=== PATIENT | female | born 1985 | race Caucasian/White ===

== ENCOUNTER → 2020-10-03 | Outpatient (REF) | payer BC ==
[2020-10-03 12:38] LABS: BASO % 0.3 % (0.0-1.0); EOS # 0.2 10^3/uL (0.0-0.5); HEMATOCRIT 28.7 % (36.0-47.0); HEMATOCRIT 29.1 % (36.0-47.0); HEMOGLOBIN 8.1 g/dl (12.0-15.5); LYMPH # 1.1 10^3/uL (1.5-5.0); LYMPH % 19.3 % (24.0-44.0); MEAN CORPUSCULAR HEMOGLOBIN 19.2 pg (27.0-33.0); MEAN CORPUSCULAR HGB CONC 27.8 g/dl (32.0-36.5); MONO # 0.5 10^3/uL (0.0-0.8); MONO % 8.5 % (2.0-8.0); NEUTROPHILS % 68.6 % (36.0-66.0); PLATELET COUNT, AUTOMATED 336 10^3/uL (150-450); RED BLOOD COUNT 4.22 10^6/uL (4.00-5.40); WHITE BLOOD COUNT 5.8 10^3/uL (4.0-10.0)
[2020-10-03 13:24] LABS: ALBUMIN 3.9 GM/DL (3.2-5.2); ALT/SGPT 31 U/L (12-78); BILIRUBIN,TOTAL 0.7 MG/DL (0.2-1.0); BLOOD UREA NITROGEN 9 MG/DL (7-18); CALCIUM LEVEL 9.2 MG/DL (8.5-10.1); CARBON DIOXIDE LEVEL 26 MEQ/L (21-32); CHLORIDE LEVEL 106 MEQ/L (98-107); CREATININE FOR GFR 0.73 MG/DL (0.55-1.30); FOLATE 15.9 NG/ML; FREE T4 0.35 NG/DL (0.76-1.46); GLOMERULAR FILTRATION RATE > 60.0 (>60); GLUCOSE, FASTING 72 MG/DL (70-100); IRON (FE) 14 UG/DL (50-170); MAGNESIUM LEVEL 2.1 MG/DL (1.8-2.4); PERCENT SATURATION 2.6 % (13.2-45.0); POTASSIUM SERUM 4.1 MEQ/L (3.5-5.1); SODIUM LEVEL 140 MEQ/L (136-145); TOTAL 25(OH) VITAMIN D 12.8 NG/ML (30.0-100.0); TOTAL IRON BINDING CAPACITY 544 UG/DL (250-450); TOTAL PROTEIN 7.2 GM/DL (6.4-8.2); VITAMIN B12 LEVEL 252 PG/ML
[2020-10-03 13:25] LABS: FERRITIN 7 NG/ML (8-252)
== END ==
LOC: M SFHCADAM 09:06
PROVIDERS: ATTEND Physician Assistant Medical
DX: E03.9 Hypothyroidism, unspecified (principal); M79.7 Fibromyalgia; Z98.84 Bariatric surgery status; R19.7 Diarrhea, unspecified

== ENCOUNTER → 2020-10-14 | Outpatient (REF) | payer BC | LOC: M SFHCADAM 11:38 | PROVIDERS: ATTEND Physician Assistant Medical | DX: D50.8 Other iron deficiency anemias (principal); R19.5 Other fecal abnormalities ==

== ENCOUNTER → 2020-10-15 | Outpatient (REF) | payer BC ==
[~2020-10-15] MED LIST: CYAN100050 PO; D 50CAP2 PO; ESTR0.5T3 PO; ESTRADIOL; FERR325T3 PO; LEVO75TA4 PO; VALA500T5 PO
[2020-10-15 13:59] LABS: HEMATOCRIT 26.7 % (36.0-47.0); HEMOGLOBIN 7.4 g/dl (12.0-15.5)
== END ==
LOC: M SFHCADAM 08:46
PROVIDERS: ATTEND Physician Assistant Medical
DX: D50.8 Other iron deficiency anemias (principal); R19.5 Other fecal abnormalities

== ENCOUNTER 2020-10-16 11:47 | Inpatient (IN) | payer BC ==
[2020-10-16] VITALS (11 sets, daily range): BP systolic 99–124; BP diastolic 54–80
[~2020-10-16] VITALS: Ht 154.9 cm; Wt 56.6 kg
[2020-10-16] MEDS ORDERED: LEVO75TA4 PO (11:56)
[2020-10-16] MEDS ORDERED: CYAN100050 PO (11:56)
[2020-10-16] MEDS ORDERED: VALA500T5 PO (11:56)
[2020-10-16] MEDS ORDERED: D 50CAP2 PO (11:56)
[2020-10-16] MEDS ORDERED: ESTRADIOL (11:56)
[2020-10-16] MEDS ORDERED: FERR325T3 PO (11:56)
[2020-10-16] MEDS ORDERED: NS 1,000 ML IV SCH (12:30)
[2020-10-16] MEDS ORDERED: PANTOPRAZOLE 40MG VIAL (C9113 PER 1) IV ONE (12:30)
--- NOTE | 2020-10-16 12:56 | REP ---
INDICATION: Diffuse abdominal pain with low hemoglobin and hematocrit COMPARISON: None. TECHNIQUE: Limited noncontrast enhanced standard helical technique without the administration of intravenous or oral bowel preparatory contrast FINDINGS: The lung bases are clear. Limited evaluation of the solid intra-abdominal organs show no gross abnormalities. Limited evaluation of the pancreas, adrenal glands, and kidneys show no gross abnormalities. Limited evaluation of the abdominal aorta and para-aortic regions show no gross abnormalities. Surgical clips are seen in the left upper quadrant from previous bariatric surgery. Limited evaluation of the bowel loops and the mesenteries show no gross abnormalities. There is no free fluid or free air. The imaged osseous structures are within normal limits. IMPRESSION: Limited noncontrast enhanced CT examination of the abdomen and pelvis shows no evidence of acute disease. <Electronically signed by Wilmar Gallardo > 10/16/20 [id number]
[2020-10-16 13:08] LABS: BASO % 0.3 % (0.0-1.0); EOS % 0.5 % (0.0-3.0); HEMATOCRIT 27.2 % (36.0-47.0); HEMOGLOBIN 7.5 g/dl (12.0-15.5); LYMPH # 1.4 10^3/uL (1.5-5.0); LYMPH % 34.6 % (24.0-44.0); MEAN CORPUSCULAR HEMOGLOBIN 19.2 pg (27.0-33.0); MEAN CORPUSCULAR HGB CONC 27.6 g/dl (32.0-36.5); MEAN CORPUSCULAR VOLUME 69.7 fl (80.0-96.0); MONO # 0.3 10^3/uL (0.0-0.8); MONO % 6.9 % (2.0-8.0); NEUTROPHILS # 2.3 10^3/uL (1.5-8.5); NEUTROPHILS % 57.4 % (36.0-66.0); PLATELET COUNT, AUTOMATED 301 10^3/uL (150-450); WHITE BLOOD COUNT 3.9 10^3/uL (4.0-10.0)
[2020-10-16] MEDS ORDERED: ESTR0.5T3 PO (13:09)
[2020-10-16 13:26] LABS: INR 0.96
[2020-10-16 13:35] LABS: RSV AMPLIFICATION NEGATIVE (NEGATIVE)
[2020-10-16 13:40] LABS: ALBUMIN 3.5 GM/DL (3.2-5.2); ALT/SGPT 23 U/L (12-78); BILIRUBIN,DIRECT < 0.1 MG/DL (0.0-0.2); BILIRUBIN,TOTAL 0.5 MG/DL (0.2-1.0); BLOOD UREA NITROGEN 9 MG/DL (7-18); CALCIUM LEVEL 8.4 MG/DL (8.5-10.1); CARBON DIOXIDE LEVEL 24 MEQ/L (21-32); CHLORIDE LEVEL 110 MEQ/L (98-107); CK-MB VALUE MASS 2.7 NG/ML (<3.6); CPK CREATINE PHOSPHOKINASE 118 U/L (26-192); CREATININE FOR GFR 0.62 MG/DL (0.55-1.30); GLOMERULAR FILTRATION RATE > 60.0 (>60); GLUCOSE, FASTING 71 MG/DL (70-100); LIPASE 157 U/L (73-393); MB/CK RELATIVE INDEX 2.29 (< OR =4); POTASSIUM SERUM 4.2 MEQ/L (3.5-5.1); SODIUM LEVEL 143 MEQ/L (136-145); TOTAL PROTEIN 6.7 GM/DL (6.4-8.2); TROPONIN I < 0.02 NG/ML (< 0.10)
[2020-10-16 14:33] LABS: FERRITIN 10 NG/ML (8-252); IRON (FE) 17 UG/DL (50-170); PERCENT SATURATION 3.4 % (13.2-45.0); TOTAL IRON BINDING CAPACITY 502 UG/DL (250-450)
[2020-10-16] MEDS ORDERED: DEXTROSE 50% 50 ML SYRINGE IV PRN (14:35)
[2020-10-16] MEDS ORDERED: GI COCKTAIL 50ML BTL(HYOSCYAMINE/MAALOX/LIDOCAINE VISCOUS)(1:3:1) PO PRN (14:35)
[2020-10-16] MEDS ORDERED: GLUCAGON INJ 1MG VIAL SC PRN (14:35)
[2020-10-16] MEDS ORDERED: ONDANSETRON 4MG/2ML VIAL IV PRN (14:35)
[2020-10-16] MEDS ORDERED: GLUCOSE 4GM CHEW TABLET PO PRN (14:35)
--- NOTE | 2020-10-16 14:46 | HPEPDOC ---
[facility] Medical History & Physical Date of Admission Oct 16, 2020 Date of Service: Oct 16, 2020 History and Physical CHIEF COMPLAINT: Black stools for 2 weeks HISTORY OF PRESENT ILLNESS: 35-year-old female with history of gastric bypass surgery in 2017 with gastric sleeve, thyroid CA status post thyroidectomy, hysterectomy due to polycystic ovarian syndrome, hypothyroidism, status post thyroidectomy, fibromyalgia, dish washer camelia anemia avoids nonsteroidal anti-inflammatories since her gastric bypass surgery presents to the emergency room after routine blood tests ordered by her primary care physician, showed a hemoglobin of 7.5. Patient has noted increasing melanotic stools, black and tarry for the past 2 weeks about 3 times a day, worse when she eats something with diffuse abdominal pain without fever, chills, chest pain, pressure, tightness, nausea or vomiting with about a 15-20 pound weight loss in the past year, with dizziness, diaphoresis at times but no palpitations, shortness of breath or near syncope. She denies hematemesis, coffee-ground emesis or history of peptic ulcer disease in the past or heartburn . Gastroesophageal reflux and denied taking any jzfc-rkv-hzfjqub medications, aside from acetaminophen for her abdominal pain at home without relief. Patient had no prior episodes of black stools in the past and has not had blood transfusion. She complains of occasional cold sores and has joint pains, bilateral small joints of the hands, hips, back, knees, ankles for her fibromyalgia, but denies taking Naprosyn, Advil, Aleve as outpatient. In the emergency room. Patient was not orthostatic, CT abdomen and pelvis was negative for acute colitis but limited since it had no oral contrast. [facility] was asked to admit the patient for symptomatic anemia due to acute blood loss from suspected upper GI bleed, most likely due to history of gastric bypass surgery and possible anastomotic ulcer. PAST MEDICAL/ SURGICAL HISTORY: history of gastric bypass surgery in 2017 with gastric sleeve, thyroid CA status post thyroidectomy, hysterectomy due to polycystic ovarian syndrome, hypothyroidism, status post thyroidectomy, fibromyalgia, chronic anemia , lumpectomy of the breast, benign, cholecystectomy, SOCIAL HISTORY: Full code. Healthcare proxy, rohit SANDOVALSREE [phone] social alcohol use 1-2 beers/twice a month . denies cig or drug use. [facility] [employer] [employer]. FAMILY HISTORY: Father: Alive, age 56. Stage III colon cancer diagnosed at age 55 Mother: Mother in her 50s, 15 months ago, history of COPD, lupus, heart problems, anemia, had a scope and of infection ALLERGIES: Please see below. REVIEW OF SYSTEMS: 10 point review of systems negative aside from positive findings in HPI HOME MEDICATIONS: Please see below. PHYSICAL EXAMINATION: VITAL SIGNS: See below GENERAL APPEARANCE: Pale, no respiratory distress icterus, jaundice. No use of r espiratory accessory muscles. Speaks in full sentences. Awake, alert, oriented 3. HEENT: No JVD. No cervical lymphadenopathy. Moist mucous membranes. Pupils equally round, reactive to light accommodation. Extra muscles are intact. Neck supple, full range of motion, no carotid bruit. No stridor CARDIOVASCULAR: S1, S2, sinus rhythm, no murmurs, rubs or gallops LUNGS: Air entry is equal bilaterally. No adventitious breath sounds clear to auscultation. No kyphosis or scoliosis ABDOMEN: Positive bowel sounds, soft, nondistended. Epigastric tenderness without rebound or guarding. No hepatosplenomegaly EXTREMITIES: No cyanosis, clubbing or pitting edema LABORATORY DATA: See below. IMAGING: See chart MICROBIOLOGY: Please see below. ASSESSMENT: 35-year-old female with history of gastric bypass surgery in 2017 with gastric sleeve, thyroid CA status post thyroidectomy, hysterectomy due to polycystic ovarian syndrome, hypothyroidism, status post thyroidectomy, fibromyalgia, chronic anemia avoids nonsteroidal anti-inflammatories since her gastric bypass surgery presents to the emergency room after routine blood tests ordered by her primary care physician, showed a hemoglobin of 7.5. Patient has noted increasing melanotic stools, black and tarry for the past 2 weeks about 3 times a day, worse when she eats something with diffuse abdominal pain without fever, chills, chest pain, pressure, tightness, nausea or vomiting with about a 15-20 pound weight loss in the past year, with dizziness, diaphoresis at times but no palpitations, shortness of breath or near syncope. She denies hematemesis, coffee-ground emesis or history of peptic ulcer disease in the past or heartburn. Gastroesophageal reflux and denied taking any keoa-whl-leqqvha medications, aside from acetaminophen for her abdominal pain at home without relief. Patient had no prior episodes of black stools in the past and has not had blood transfusion. She complains of occasional cold sores and has joint pains, bilateral small joints of the hands, hips, back, knees, ankles for her fibromyalgia, but denies taking Naprosyn, Advil, Aleve as outpatient. In the emergency room. Patient was not orthostatic, CT abdomen and pelvis was negative for acute colitis but limited since it had no oral contrast. Hospitalist was asked to admit the patient for symptomatic anemia due to acute blood loss from suspected upper GI bleed, most likely due to history of gastric bypass surgery and possible anastomotic ulcer. Symptomatic anemia Suspected upper GI bleed Acute blood loss anemia History of gastric bypass surgery with gastric sleeve thyroid CA status post thyroidectomy hysterectomy due to polycystic ovarian syndrome hypothyroidism, status post thyroidectomy fibromyalgia Plan: Patient will be admitted as an inpatient. Nothing by mouth, IV fluids, hypoglycemic protocol. Transfuse 2 units of RBC transfusion, general surgeon, Dr. Wing consulted for EGD. Protonix 40 IV twice a day, Carafate 1 g every 6 hourly. Compression stockings for DVT prophylaxis. Change medications to IV if needed Vital Signs Vital Signs Date Time Temp Pulse Resp B/P (MAP) Pulse Ox O2 Delivery O2 Flow Rate FiO2 10/16/20 13:45 68 18 101/59 (73) 100 Room Air 10/16/20 11:47 97.2 Laboratory Data Labs 24H Laboratory Tests 2 10/16/20 12:41: Immature Granulocyte % (Auto) 0.3, Neutrophils (%) (Auto) 57.4, Lymphocytes (%) (Auto) 34.6, Monocytes (%) (Auto) 6.9, Eosinophils (%) (Auto) 0.5, Basophils (%) (Auto) 0.3, Neutrophils # (Auto) 2.3, Lymphocytes # (Auto) 1.4L, Monocytes # (Auto) 0.3, Eosinophils # (Auto) 0.0, Basophils # (Auto) 0.0, Nucleated Red Blood Cells % (auto) 0.0, Differential Slide Review Report, Peripheral Blood Smear Path Consult PERIPHERAL SMEAR, Prothrombin Time 13.0, Prothromb Time International Ratio 0.96, Anion Gap 9, Glomerular Filtration Rate > 60.0, Calcium Level 8.4L, Iron Level 17L, Total Iron Binding Capacity 502H, Transferrin % Saturation 3.4L, Ferritin 10, Total Bilirubin 0.5, Direct Bilirubin < 0.1, Aspartate Amino Transf (AST/SGOT) 29, Alanine Aminotransferase (ALT/SGPT) 23, Alkaline Phosphatase 51, Total Creatine Kinase 118, Creatine Kinase MB 2.7, Creatine Kinase MB Relative Index 2.29, Troponin I < 0.02, Total Protein 6.7, Albumin 3.5, Albumin/Globulin Ratio 1.1L, Lipase 157, Coronavirus (COVID-19)(PCR) NEGATIVE, Influenza Type A (RT-PCR) NEGATIVE, Influenza Type B (RT-PCR) NEGATIVE, Respiratory Syncytial Virus (PCR) NEGATIVE CBC/BMP Laboratory Tests 10/16/20 12:41 Home Medications Scheduled Cholecalciferol (Vitamin D3) (Vitamin D3) 125 Mcg Capsule, 125 MCG PO QHS Cyanocobalamin (Vitamin B-12) (Vitamin B-12) 1,000 Mcg Tablet, 1,000 MCG PO QHS Estradiol (Estrace) 0.5 Mg Tablet, 0.5 MG PO QHS HAS NOT STARTED YET Ferrous Sulfate (Ferrous Sulfate) 325 Mg Tablet.dr, 325 MG PO QHS Levothyroxine Sodium (Levothyroxine Sodium) 75 Mcg Tablet, 75 MCG PO DAILY Valacyclovir HCl (Valacyclovir) 500 Mg Tablet, 500 MG PO QHS Allergies Coded Allergies: No Known Allergies (Unverified , 10/16/20) A-FIB/CHADSVASC A-FIB History Current/History of A-Fib/PAF?: No Current PO Anticoag Therapy: No Age/Risk Factor Scoring CHADSVASC: CHADSVASC Response (Comments) Value Age Risk Factor Age < 65 years old 0 Gender Risk Factor Female 1 Hx of CHF No 0 Hx of HTN No 0 Hx of Stroke/TIA/or VTE No 0 Hx of Diabetes No 0 Hx of Vascular Disease No 0 Total 1 Treatment Treatment ordered: NONE Reason Anticoagulant not given: Current bleeding LOPEZ MCFARLAND MD Oct 16, 2020 14:46
[2020-10-16] MEDS ORDERED: BISACODYL 5 MG TAB PO ONE (18:00)
[2020-10-16] MEDS: SUCRALFATE SUSP 1GM/10ML UD PO SCH (18:19)
[2020-10-16] MEDS: D5W/0.45% SODIUM CHLORIDE 1,000 ML IV SCH ×2 (18:19→21:20)
[2020-10-16] MEDS ORDERED: GOLYTELY SOLN 4000 ML BTL PO ONE (19:00)
[2020-10-16] MEDS: PANTOPRAZOLE 40MG VIAL (C9113 PER 1) IV SCH (21:04)
[2020-10-16] MEDS ORDERED: ACETAMINOPHEN TAB 650MG DOSE (2X325MG) PO PRN (21:35)
[2020-10-16 21:51] LABS: HEMATOCRIT 33.4 % (36.0-47.0)
[2020-10-16 22:19] LABS: HEMOGLOBIN 9.9 g/dl (12.0-15.5)
[2020-10-17] VITALS (9 sets, daily range): BP systolic 98–123; BP diastolic 54–71
[2020-10-17] MEDS: D5W/0.45% SODIUM CHLORIDE 1,000 ML IV SCH ×3 (01:59→12:38)
[2020-10-17] MEDS: SUCRALFATE SUSP 1GM/10ML UD PO SCH ×5 (01:59→23:04)
[2020-10-17 05:51] LABS: HEMATOCRIT 32.5 % (36.0-47.0); HEMOGLOBIN 9.5 g/dl (12.0-15.5); MEAN CORPUSCULAR HEMOGLOBIN 21.6 pg (27.0-33.0); MEAN CORPUSCULAR HGB CONC 29.2 g/dl (32.0-36.5); MEAN CORPUSCULAR VOLUME 73.9 fl (80.0-96.0); PLATELET COUNT, AUTOMATED 270 10^3/uL (150-450); WHITE BLOOD COUNT 4.4 10^3/uL (4.0-10.0)
[2020-10-17 06:16] LABS: BLOOD UREA NITROGEN 8 MG/DL (7-18); CALCIUM LEVEL 8.5 MG/DL (8.5-10.1); CARBON DIOXIDE LEVEL 26 MEQ/L (21-32); CHLORIDE LEVEL 110 MEQ/L (98-107); GLOMERULAR FILTRATION RATE > 60.0 (>60); GLUCOSE, FASTING 82 MG/DL (70-100); POTASSIUM SERUM 3.7 MEQ/L (3.5-5.1); SODIUM LEVEL 143 MEQ/L (136-145)
[2020-10-17] MEDS: PANTOPRAZOLE 40MG VIAL (C9113 PER 1) IV SCH (08:04)
--- NOTE | 2020-10-17 09:14 | CR.PDOC ---
General Surgery Consultation Date of Consultation 10/17/20 History and Physical CONSULT REPORT FOR: hospitalist service REASON FOR CONSULTATION: severe anemia, melena HISTORY OF PRESENT ILLNESS: Patient is a 35-year-old female admitted to the hospitalist service for severe anemia associated with passage of black loose stools for the past 2 weeks. Patient reports a prior history of some sort of gastric resection for a benign cyst in the stomach back in 2016. She reports that the pathology is benign. She denies any prior history of peptic ulcer disease. She does have a history of irritable bowel syndrome, pulse cystic ovarian syndrome and has abdominal cramps. There. It looks like she was from [place] some us for care were done there. She recently transferred to our area and established with the [facility]. Initial screening labs done at the end of September shows a hemoglobin of 8.1. She was started on supplementa l iron. Repeat studies that were done 2 days ago shows that this has dropped to 7.4 prompting her to be recalled to the emergency room and subsequent admission yesterday. She reports intermittent epigastric discomfort that she reports as burning. She also reports associated nausea, sometimes retching no vomiting. She also has been having some intermittent loose stools every time she eats though for the past 2 weeks she notes that the collar has been black. She denies any unexplained weight loss. Her father was diagnosed with colon cancer at age 55. She reports prior history of colonoscopy several years ago for complaints of abdominal pain and rectal bleeding with some polyps removed. She has had no prior endoscopies performed. PAST MEDICAL HISTORY: 1. Thyroid cancer status post thyroidectomy. 2. Polycystic ovarian syndrome status post laparoscopic hysterectomy 3. Fibromyalgia 4. Chronic anemia 5. Breast lumpectomy 6. Cholecystectomy PAST SURGICAL HISTORY: INCLUDES: 1. She has some sort of gastric surgery for what she refers to as a cyst in the stomach in 2017. This was performed laparoscopically. She reports that this was for a benign cyst. 2. Laparoscopic cholecystectomy 3. Laparoscopic hysterectomy 4. section 5. Thyroidectomy ALLERGIES: Please see below. FAMILY HISTORY: Reports her father was diagnosed with colon cancer at age 55. HOME MEDICATIONS: Please see below. REVIEW OF SYSTEMS: GENERAL: Patient denies any unexplained weight loss. Denies fevers or chills. HEENT: Denies problems with vision or hearing. NECK: Denies any neck pain CARDIOVASCULAR: Denies chest pain and palpitations. MUSCULOSKELETAL: Reports fibromyalgia. NEUROLOGIC: Denies headaches. PSYCHIATRIC: Denies anxiety and depression. ENDOCRINE: Has had total thyroidectomy. Denies any heat or cold intolerance, on thyroid supplementation. HEMATOLOGY/ONCOLOGY: Denies bleeding or clotting disorder. HEART: Denies any chest pains, palpitations, paroxysmal dyspnea, orthopnea. PULMONARY: Denies chronic cough, dyspnea and wheezing. GASTROINTESTINAL: See HPI. GENITOURINARY: Denies dysuria, frequency, hematuria and nocturia. ENDOCRINE: Denies polydipsia, polyphagia, polyuria, heat or cold intolerance. INFECTIOUS: Denies any recent upper respiratory tract infection, UTI, need for use of antibiotics. NUTRITION: Reports fair appetite secondary to intermittent nausea. PHYSICAL EXAMINATION: VITALS SIGNS: Please see below. GENERAL APPEARANCE: Patient is seen in the emergency room. She looks comfortable as I entered the room. She is laying flat in bed. In no acute distress. SKIN: Warm and dry, no jaundice. HEENT: Normocephalic, mild pale palpebral conjunctiva. Lips and mucosa are mildly dry. NECK: Supple, no thyromegaly. No obvious jugular venous distention. Prior thyroidectomy incision LUNGS: Clear to auscultation bilaterally. No wheezing appreciated. HEART: No chest wall abnormalities. Regular rate and rhythm with no murmurs appreciated. ABDOMEN: Abdomen is nondistended, soft, nontender on palpation. She has several laparoscopic port sites without any signs of herniation. EXTREMITIES: No significant edema ANCILLARIES: . LABORATORY DATA: Please see below. IMAGING STUDIES: CT scan abdomen and pelvis. IMPRESSION AND PLAN: Patient comes in with severe anemia in the setting of a chronic anemia also reports of what looks to be melanotic stools the past 2 weeks. He has had some sort of prior gastric resection. A clarified this with her. This was not the area gastric sleeve for bariatric purposes. This was for a removal of a lump or a cyst. She reports this is a benign cyst related to her polycystic ovarian syndrome. She also has a significant family history for colon cancer. Her father has been diagnosed with a fairly advanced colon cancer at age 55. She has had prior colonoscopy several years ago but has had no prior upper endoscopies. She also denies any previous history of peptic ulcer disease. She has already been started on Protonix IV. I discussed with her the suspicion that she might have been having a gastrointestinal source of her bleeding and thus the need for an upper endoscopy and I would consider a colonoscopy she is able to take a bowel prep. She is willing to take the bowel prep overnight. So we will schedule her for an upper endoscopy and colonoscopy in the morning. Vital Signs Vital Signs Date Time Temp Pulse Resp B/P (MAP) Pulse Ox O2 Delivery O2 Flow Rate FiO2 10/17/20 06:00 98.0 58 18 110/56 (74) 98 Room Air I&Os I&O- Last 24 Hours up to 6 AM 10/17/20 05:59 Intake Total 2930 ml Balance 2930 ml Laboratory Data Labs 24H Laboratory Tests 2 10/16/20 12:41: Immature Granulocyte % (Auto) 0.3, Neutrophils (%) (Auto) 57.4, Lymphocytes (%) (Auto) 34.6, Monocytes (%) (Auto) 6.9, Eosinophils (%) (Auto) 0.5, Basophils (%) (Auto) 0.3, Neutrophils # (Auto) 2.3, Lymphocytes # (Auto) 1.4L, Monocytes # (Auto) 0.3, Eosinophils # (Auto) 0.0, Basophils # (Auto) 0.0, Reticulocyte # (auto) 118.3H, Nucleated Red Blood Cells % (auto) 0.0, Differential Slide Review Report, Peripheral Blood Smear Path Consult PERIPHERAL SMEAR, Percent Reticulocyte Count 3.1H, Reticulocyte Hemoglobin Equivalent 23.9L, Prothrombin Time 13.0, Prothromb Time International Ratio 0.96, Anion Gap 9, Glomerular Filtration Rate > 60.0, Calcium Level 8.4L, Iron Level 17L, Total Iron Binding Capacity 502H, Transferrin % Saturation 3.4L, Ferritin 10, Total Bilirubin 0.5, Direct Bilirubin < 0.1, Aspartate Amino Transf (AST/SGOT) 29, Alanine Aminotransferase (ALT/SGPT) 23, Alkaline Phosphatase 51, Total Creatine Kinase 118, Creatine Kinase MB 2.7, Creatine Kinase MB Relative Index 2.29, Troponin I < 0.02, Total Protein 6.7, Albumin 3.5, Albumin/Globulin Ratio 1.1L, Lipase 157, Coronavirus (COVID-19)(PCR) NEGATIVE, Influenza Type A (RT-PCR) NEGATIVE, Influenza Type B (RT-PCR) NEGATIVE, Respiratory Syncytial Virus (PCR) NEGATIVE 6/11/21 05:24: Nucleated Red Blood Cells % (auto) 0.0, Anion Gap 7L, Glomerular Filtration Rate > 60.0, Calcium Level 8.5 CBC/BMP Laboratory Tests 10/16/20 12:41 10/16/20 21:42 10/17/20 05:24 Microbiology Microbiology 10/16/20 Stool Occult Blood (JOSÉ MIGUEL) - Final, Complete Home Medications Scheduled Cholecalciferol (Vitamin D3) (Vitamin D3) 125 Mcg Capsule, 125 MCG PO QHS, (Reported) Cyanocobalamin (Vitamin B-12) (Vitamin B-12) 1,000 Mcg Tablet, 1,000 MCG PO QHS, (Reported) Estradiol (Estrace) 0.5 Mg Tablet, 0.5 MG PO QHS, (Reported) HAS NOT STARTED YET Ferrous Sulfate (Ferrous Sulfate) 325 Mg Tablet.dr, 325 MG PO QHS, (Reported) Levothyroxine Sodium (Levothyroxine Sodium) 75 Mcg Tablet, 75 MCG PO DAILY, ( Reported) Valacyclovir HCl (Valacyclovir) 500 Mg Tablet, 500 MG PO QHS, (Reported) Allergies Coded Allergies: No Known Allergies (Unverified , 10/16/20) KATE FAUSTIN MD Oct 17, 2020 09:14
[2020-10-17] MEDS ORDERED: fentaNYL 100 MCG/2 ML INJECTION (J3010) As Ordered ONE (10:23)
[2020-10-17] MEDS ORDERED: LIDOCAINE 2% 100MG/5ML SDV (FOR ANES.) As Ordered ONE (10:23)
[2020-10-17] MEDS ORDERED: propofoL 200 MG/20 ML VIAL As Ordered ONE ×2 (10:23→11:39)
--- NOTE | 2020-10-17 11:49 | ROOR ---
Patient Name: Barbara Allen Procedure Date: 10/17/2020 10:32 AM Date of : 1985 Age: 35 Gender: Female Note Status: Finalized Procedure: Upper GI endoscopy Indications: Acute post hemorrhagic anemia, Iron deficiency anemia secondary to chronic blood loss, Iron deficiency anemia Providers: Murtaza Wing MD Referring MD: 2. Inpatient 2. Inpatient Requesting Provider: Medicines: Monitored Anesthesia Care Complications: No immediate complications. Procedure: Pre-Anesthesia Assessment: - Prior to the procedure, a History and Physical was performed, and patient medications and allergies were reviewed. The patient is competent. The risks and benefits of the procedure and the sedation options and risks were discussed with the patient. All questions were answered and informed consent was obtained. Patient identification and proposed procedure were verified by the physician, the nurse and the ornamental iron worker apprentice in the procedure room. Mental Status Examination: alert and oriented. Airway Examination: normal oropharyngeal airway and neck mobility. Respiratory Examination: clear to auscultation. CV Examination: normal. Prophylactic Antibiotics: The patient does not require prophylactic antibiotics. Prior Anticoagulants: The patient has taken no previous anticoagulant or antiplatelet agents. ASA Grade Assessment: II - A patient with mild systemic disease. After reviewing the risks and benefits, the patient was deemed in satisfactory condition to undergo the procedure. The anesthesia plan was to use monitored anesthesia care (MAC). Immediately prior to administration of medications, the patient was re-assessed for adequacy to receive sedatives. The heart rate, respiratory rate, oxygen saturations, blood pressure, adequacy of pulmonary ventilation, and response to care were monitored throughout the procedure. The physical status of the patient was re-assessed after the procedure. The Endoscope was introduced through the mouth, and advanced to the efferent jejunal loop. The upper GI endoscopy was accomplished without difficulty. The patient tolerated the procedure well. Findings: There is no endoscopic evidence of bleeding, areas of erosion or esophagitis in the entire esophagus. A small hiatal hernia was present. The Z-line was regular and was found 38 cm from the incisors. Evidence of a Delmy-en-Y gastrojejunostomy was found. The gastrojejunal anastomosis was characterized by ulceration. This was traversed. The xwpga-bd-uapntds limb was characterized by healthy appearing mucosa and an intact staple line. The xexllaxq-mf-hjizeuy limb was not examined as it could not be reached. This was biopsied with a cold forceps for Helicobacter pylori testing. There is no endoscopic evidence of bleeding, erythema or inflammatory changes suggestive of gastritis, inflammation or varices in the entire examined stomach. One non-bleeding cratered ulcer with no stigmata of bleeding was found at the anastomosis. The lesion was 10 mm in largest dimension. This was biopsied with a cold forceps for Helicobacter pylori testing. Impression: - Small hiatal hernia. - Z-line regular, 38 cm from the incisors. - Delmy-en-Y gastrojejunostomy with gastrojejunal anastomosis characterized by ulceration. Biopsied. Recommendation: - Ad[facility] the [facility]. - Use Protonix (pantoprazole) 40 mg PO BID for 3 months. - Use sucralfate tablets 1 gram PO QID for 6 weeks. Procedure Code(s): --- Professional --- 35883, Esophagogastroduodenoscopy, flexible, transoral; with biopsy, single or multiple Diagnosis Code(s): --- Professional --- K44.9, Diaphragmatic hernia without obstruction or gangrene Z98.0, Intestinal bypass and anastomosis status D62, Acute posthemorrhagic anemia D50.0, Iron deficiency anemia secondary to blood loss (chronic) D50.9, Iron deficiency anemia, unspecified CPT copyright 2019 [employer]. All rights reserved. The codes documented in this report are preliminary and upon contact center director review may be revised to meet current compliance requirements. Murtaza Wing MD Murtaza Wing MD 10/17/2020 11:49:22 AM Electronically signed by Murtaza Wing MD Number of Addenda: 0 Note Initiated On: 10/17/2020 10:32 AM Estimated Blood Loss: Estimated blood loss was minimal.
--- NOTE | 2020-10-17 11:53 | ROOR ---
Patient Name: Barbara Allen Procedure Date: 10/17/2020 10:33 AM Date of : 1985 Age: 35 Gender: Female Note Status: Finalized Procedure: Colonoscopy Indications: Melena, Acute post hemorrhagic anemia, Iron deficiency anemia secondary to chronic blood loss, Iron deficiency anemia Providers: Murtaza Wing MD Referring MD: 2. Inpatient 2. Inpatient Requesting Provider: Medicines: Monitored Anesthesia Care Complications: No immediate complications. Procedure: Pre-Anesthesia Assessment: - Prior to the procedure, a History and Physical was performed, and patient medications and allergies were reviewed. The patient is competent. The risks and benefits of the procedure and the sedation options and risks were discussed with the patient. All questions were answered and informed consent was obtained. Patient identification and proposed procedure were verified by the physician, the nurse and the nuclear operations specialist in the procedure room. Mental Status Examination: alert and oriented. Airway Examination: normal oropharyngeal airway and neck mobility. Respiratory Examination: clear to auscultation. CV Examination: normal. ASA Grade Assessment: II - A patient with mild systemic disease. After reviewing the risks and benefits, the patient was deemed in satisfactory condition to undergo the procedure. The anesthesia plan was to use monitored anesthesia care (MAC). Immediately prior to administration of medications, the patient was re-assessed for adequacy to receive sedatives. The heart rate, respiratory rate, oxygen saturations, blood pressure, adequacy of pulmonary ventilation, and response to care were monitored throughout the procedure. The physical status of the patient was re-assessed after the procedure. The Colonoscope was introduced through the anus and advanced to the cecum, identified by appendiceal orifice and ileocecal valve. The colonoscopy was performed without difficulty. The patient tolerated the procedure well. The quality of the bowel preparation was good. Findings: Hemorrhoids were found on perianal exam. A few small-mouthed diverticula were found in the sigmoid colon and descending colon. There is no endoscopic evidence of bleeding, erythema, inflammation, mass, stricture or ulcerations in the entire colon. The retroflexed view of the distal rectum and anal verge was normal and showed no anal or rectal abnormalities. Impression: - Hemorrhoids found on perianal exam. - Diverticulosis in the sigmoid colon and in the descending colon. - The distal rectum and anal verge are normal on retroflexion view. - No specimens collected. Recommendation: - [facility]. Procedure Code(s): --- Professional --- 74280, Colonoscopy, flexible; diagnostic, including collection of specimen(s) by brushing or washing, when performed (separate procedure) Diagnosis Code(s): --- Professional --- K64.9, Unspecified hemorrhoids K92.1, Melena (includes Hematochezia) D62, Acute posthemorrhagic anemia D50.0, Iron deficiency anemia secondary to blood loss (chronic) D50.9, Iron deficiency anemia, unspecified K57.30, Diverticulosis of large intestine without perforation or abscess without bleeding CPT copyright 2019 [employer]. All rights reserved. The codes documented in this report are preliminary and upon belting and webbing inspector review may be revised to meet current compliance requirements. Murtaza Wing MD Murtaza Wing MD 10/17/2020 11:52:46 AM Electronically signed by Murtaza Wing MD Number of Addenda: 0 Note Initiated On: 10/17/2020 10:33 AM Estimated Blood Loss: Estimated blood loss: none.
[2020-10-17] MEDS ORDERED: ONDANSETRON 4MG/2ML VIAL IV PRN (12:05)
[2020-10-17] MEDS ORDERED: SUCR1TA PO (13:12)
[2020-10-17] MEDS ORDERED: BACI1CAP PO (13:12)
[2020-10-17] MEDS ORDERED: PROT1TAB2 PO (13:12)
[2020-10-17] MEDS ORDERED: PILL CUTTER 1 EACH XX PRN (13:15)
--- NOTE | 2020-10-17 15:42 | IPNPDOC ---
Date Seen The patient was seen on 10/17/20. Progress Note SUBJECTIVE: s/p bowel prep w black bm overnight. denies brbpr, coffee ground emesis, hematemesis, sob, palpitations, lightheadedness, or dizziness. VITAL SIGNS: See below GENERAL APPEARANCE: no distressAwake, alert, oriented 3. HEENT: No JVD. No cervical lymphadenopathy. Moist mucous membranes. Pupils equally round, reactive to light accommodation. Extra muscles are intact. Neck supple, full range of motion, no carotid bruit. No stridor CARDIOVASCULAR: S1, S2, sinus rhythm, no murmurs, rubs or gallops LUNGS: Air entry is equal bilaterally. No adventitious breath sounds clear to auscultation. No kyphosis or scoliosis ABDOMEN: Positive bowel sounds, soft, nondistended.nontender No hep atosplenomegaly EXTREMITIES: No cyanosis, clubbing or pitting edema LABORATORY DATA: See below. IMAGING: See chart MICROBIOLOGY: Please see below. 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 Patient has noted increasing melanotic stools, black and tarry for the past 2 weeks about 3 times a day, worse when she eats something with diffuse abdominal pain without fever, chills, chest pain, pressure, tightness, nausea or vomiting with about a 15-20 pound weight loss in the past year, with dizziness, diaphoresis at times but no palpitations, shortness of breath or near syncope. She denies hematemesis, coffee-ground emesis or history of peptic ulcer disease in the past or heartburn . Gastroesophageal reflux and denied taking any [id number] medications, aside from acetaminophen for her abdominal pain at home without relief. Patient had no prior episodes of black stools in the past and has not had blood transfusion. She complains of occasional cold sores and has joint pains, bilateral small joints of the hands, hips, back, knees, ankles for her fibromyalgia, but denies taking Naprosyn, Advil, Aleve as outpatient. In the emergency room. Patient was not orthostatic, CT abdomen and pelvis was negative for acute colitis but limited since it had no oral contrast. [facility] was asked to admit the patient for symptomatic anemia due to acute blood loss from suspected upper GI bleed, most likely due to history of gastric bypass surgery and possible anastomotic ulcer. Symptomatic anemia upper GI bleed anastomotic ulcer s/p biopsy/egd hiatal hernia hemorrhoids diverticulosis Acute blood loss anemia s/p 2 u rbc transfusion 10/16/20 History of gastrojejunostomy w anastamosis thyroid CA status post thyroidectomy hysterectomy due to polycystic ovarian syndrome hypothyroidism, status post thyroidectomy fibromyalgia Plan: advanced to regular diet. resumed home meds. continued on ppi and carafate qachs outpt fu w surgery to discuss biopsy findings avoid nsaids. dc in am if hgb stable and tolerating diet w/o recurrent gi bleed dc ivfluids. VS, I&O, 24H, Fishbone Vital Signs/I&O Vital Signs Date Time Temp Pulse Resp B/P (MAP) Pulse Ox O2 Delivery O2 Flow Rate FiO2 10/17/20 15:30 98.6 64 18 100/65 (77) 99 Room Air I&O- Last 24 Hours up to 6 AM 10/17/20 06:00 Intake Total 2930 ml Balance 2930 ml Laboratory Data 24H LABS Laboratory Tests 2 10/17/20 05:24: Nucleated Red Blood Cells % (auto) 0.0, Anion Gap 7L, Glomerular Filtration Rate > 60.0, Calcium Level 8.5 CBC/BMP Laboratory Tests 10/16/20 21:42 10/17/20 05:24 Microbiology Microbiology 10/16/20 Stool Occult Blood (JOSÉ MIGUEL) - Final, Complete LOPEZ MCFARLAND MD Oct 17, 2020 15:42
[2020-10-17] MEDS: estradioL 1 MG TAB PO SCH (17:25)
[2020-10-17] MEDS: LEVOTHYROXINE 75MCG TABLET (0.075MG) PO SCH (17:25)
[2020-10-17] MEDS: VITAMIN D 1,000 INTERNATIONAL UNITS TABLET PO SCH (17:25)
[2020-10-17] MEDS: CYANOCOBALAMIN 500 MCG TAB PO SCH (17:25)
[2020-10-17] MEDS: PANTOPRAZOLE 40MG TAB (PROTONIX) PO SCH (20:24)
[2020-10-17] MEDS ORDERED: valACYclovir HCL 500 MG TAB PO SCH (21:00)
[2020-10-17] MEDS ORDERED: FERROUS SULFATE 325MG TAB PO SCH (21:00)
[2020-10-18] MEDS: LEVOTHYROXINE 75MCG TABLET (0.075MG) PO SCH (05:59)
[2020-10-18] MEDS: SUCRALFATE SUSP 1GM/10ML UD PO SCH (05:59)
[2020-10-18 06:00] VITALS: BP 102/68
[2020-10-18 06:22] LABS: HEMATOCRIT 30.9 % (36.0-47.0); MEAN CORPUSCULAR HEMOGLOBIN 21.7 pg (27.0-33.0); MEAN CORPUSCULAR HGB CONC 29.1 g/dl (32.0-36.5); MEAN CORPUSCULAR VOLUME 74.5 fl (80.0-96.0); PLATELET COUNT, AUTOMATED 249 10^3/uL (150-450); RED BLOOD COUNT 4.15 10^6/uL (4.00-5.40)
[2020-10-18 06:44] LABS: BLOOD UREA NITROGEN 8 MG/DL (7-18); CALCIUM LEVEL 8.2 MG/DL (8.5-10.1); CARBON DIOXIDE LEVEL 28 MEQ/L (21-32); CHLORIDE LEVEL 109 MEQ/L (98-107); CREATININE FOR GFR 0.72 MG/DL (0.55-1.30); GLOMERULAR FILTRATION RATE > 60.0 (>60); GLUCOSE, FASTING 78 MG/DL (70-100); SODIUM LEVEL 142 MEQ/L (136-145)
[2020-10-18] MEDS: CYANOCOBALAMIN 500 MCG TAB PO SCH (08:26)
[2020-10-18] MEDS: PANTOPRAZOLE 40MG TAB (PROTONIX) PO SCH (08:26)
[2020-10-18] MEDS: estradioL 1 MG TAB PO SCH (08:26)
[2020-10-18] MEDS: VITAMIN D 1,000 INTERNATIONAL UNITS TABLET PO SCH (08:26)
--- NOTE | 2020-10-18 13:06 | DSES ---
DISCHARGE SUMMARY DATE OF ADMISSION: 10/16/2020 DATE OF DISCHARGE: 10/18/2020 CONSULTANTS: Murtaza Wing M.D., general surgery. PROCEDURES DURING THIS ADMISSION: 1. Esophagogastroduodenoscopy (EGD). 2. Colonoscopy. PRIMARY DISCHARGE DIAGNOSES: 1. Acute blood loss anemia. 2. Symptomatic anemia. 3. Acute upper gastrointestinal (GI) bleed secondary to anastomotic ulcer bleed status post biopsy and esophagogastroduodenoscopy (EGD). 4. Hiatal hernia. 5. Hemorrhoids. 6. Diverticulosis. 7. Acute blood loss anemia requiring 2 units of red blood cell (RBC) transfusion 10/16/2020. 8. History of gastrojejunostomy with anastomosis. 9. Thyroid cancer status post thyroidectomy with subsequent hypothyroidism. 10. Hysterectomy due to polycystic ovarian syndrome. 11. Chronic fibromyalgia. DISCHARGE MEDICATIONS: - Protonix 40 mg daily - Carafate 1 gram in the morning and at bedtime - Bacid one tablet by mouth with meals - vitamin D 125 mcg daily - cyanocobalamin, vitamin B12 1000 mcg at bedtime - estradiol 0.5 at bedtime - ferrous sulfate 325 mg at bedtime - Synthroid 75 mg daily - valacyclovir 500 mg by mouth at bedtime HOSPITAL COURSE: This is a 35-year-old female with prior history of gastric bypass 2017 with gastrojejunostomy with anastomosis, thyroid cancer status post thyroidectomy with subsequent hypothyroidism, polycystic ovarian syndrome status post hysterectomy, fibromyalgia, chronic anemia, avoids nonsteroidal antiinflammatories, presents to the emergency room (ER) after blood test by primary care showed hemoglobin of 7.5 with melanotic stools, black and tarry, for the past two weeks, about three times a day, worse when she eats, with diffuse abdominal pain without fever or chills, hematemesis, bright red blood per rectum or coffee-ground emesis. She has had about a 15 pound weight loss in the past year and complaint of dizziness and diaphoresis. No palpitations, shortness of breath or near syncope after her black melanotic stools. Patient was treated with nothing by mouth (NPO) status, intravenous (IV) fluids, Protonix and Carafate, underwent esophagogastroduodenoscopy (EGD) and colonoscopy by Dr. Wing, who found an anastomotic ulcer, hiatal hernia, hemorrhoids and diverticulosis, with recommendations to continue six weeks of proton pump inhibitor and Carafate four times daily, outpatient followup to discuss pathology report. Patient was started back on clear liquid diet, advanced to regular diet, which she tolerated without recurrent gastrointestinal (GI) bleed. She did receive 2 units of red blood cell (RBC) transfusion with resultant increase in hemoglobin from 7.5 to 9.0 and hematocrit of 27.2 to 30.9 on the day of discharge. Since EGD and colonoscopy, patient had no recurrent episodes of GI bleed and was subsequently discharged home in stable condition. She asked for one week off from work in order to recuperate and see Dr. Wing and her primary care within that one week prior to coming back to work. PHYSICAL EXAMINATION ON DISCHARGE: VITAL SIGNS: Temperature 98, pulse 60, respiratory rate 19, blood pressure 102/68, 98% on room air. GENERAL: Awake, alert, oriented times three. No pallor, icterus or jaundice. No use of respiratory accessory muscles, able to speak in full sentences. HEENT: Pupils round, react to light and accommodation. Extraocular muscles intact. Normocephalic, atraumatic. No stridor, icterus, jaundice or carotid bruit. LUNGS: Clear to auscultation. No wheezing, rales or rhonchi. HEART: S1, S2. Sinus rhythm. ABDOMEN: Soft, nontender, nondistended. Positive bowel sounds. EXTREMITIES: No cyanosis, clubbing or pitting edema. LABORATORY DATA: For laboratory data, microbiology and imaging studies, please see chart. TIME SPEND ON DISCHARGE: 30 minutes. [facility]
[2020-10-20 16:08] LABS: Chitobioside Carbohydrat (ACCA 47 units (0-90); Laminaribioside Carbohyd (ALCA 26 units (0-60); Mannobioside Carbohydrat (AMCA 70 units (0-100); Saccharomyces cerevisiae IgG A 14 units (0-50)
== END 2020-10-18 09:15 | disposition home or self-care (01) | DRG 241 ==
LOC: M ED 11:47 → OBSVTOIN 13:51 → M ED INP 13:51 → ENRESERV 15:23 → M MSPAV 18:07
PROVIDERS: ADMIT General Practice; ATTEND General Practice
PROC: 30233N1 Transfusion of Nonautologous Red Blood Cells into Peripheral Vein, Percutaneous Approach (ICD-10-PCS; 2020-10-16)
PROC: 0DJD8ZZ Inspection of Lower Intestinal Tract, Via Natural or Artificial Opening Endoscopic (ICD-10-PCS; 2020-10-17)
PROC: 0BD78ZX Extraction of Left Main Bronchus, Via Natural or Artificial Opening Endoscopic, Diagnostic (ICD-10-PCS; principal; 2020-10-17 10:30)
DX: K28.0 Acute gastrojejunal ulcer with hemorrhage (principal); D62 Acute posthemorrhagic anemia; M79.7 Fibromyalgia; R61 Generalized hyperhidrosis; R06.02 Shortness of breath; K44.9 Diaphragmatic hernia without obstruction or gangrene; K64.9 Unspecified hemorrhoids; Z98.84 Bariatric surgery status; Z20.822 Contact with and (suspected) exposure to COVID-19; Z85.850 Personal history of malignant neoplasm of thyroid; Z79.899 Other long term (current) drug therapy; Z90.79 Acquired absence of other genital organ(s); Z90.89 Acquired absence of other organs

== ENCOUNTER → 2020-10-21 | Outpatient (REF) | payer BC ==
[~2020-10-21] MED LIST changes: +BACI1CAP PO; +PROT1TAB2 PO; +SUCR1TA PO
[2020-10-21 13:11] LABS: HEMATOCRIT 35.7 % (36.0-47.0); HEMOGLOBIN 10.3 g/dl (12.0-15.5); MEAN CORPUSCULAR HGB CONC 28.9 g/dl (32.0-36.5); MEAN CORPUSCULAR VOLUME 76.1 fl (80.0-96.0); PLATELET COUNT, AUTOMATED 247 10^3/uL (150-450); RED BLOOD COUNT 4.69 10^6/uL (4.00-5.40); WHITE BLOOD COUNT 9.3 10^3/uL (4.0-10.0)
== END ==
LOC: M SFHCADAM 11:49
PROVIDERS: ATTEND Physician Assistant Medical
DX: D50.0 Iron deficiency anemia secondary to blood loss (chronic) (principal)

== ENCOUNTER → 2020-10-28 | Outpatient (REF) | payer BC ==
[2020-10-28 12:38] LABS: HEMATOCRIT 35.9 % (36.0-47.0); HEMOGLOBIN 10.3 g/dl (12.0-15.5); MEAN CORPUSCULAR HEMOGLOBIN 22.1 pg (27.0-33.0); MEAN CORPUSCULAR HGB CONC 28.7 g/dl (32.0-36.5); PLATELET COUNT, AUTOMATED 247 10^3/uL (150-450); RED BLOOD COUNT 4.66 10^6/uL (4.00-5.40); WHITE BLOOD COUNT 3.9 10^3/uL (4.0-10.0)
== END ==
LOC: M SFHCADAM 09:07
PROVIDERS: ATTEND Physician Assistant Medical
DX: D50.0 Iron deficiency anemia secondary to blood loss (chronic) (principal); E03.9 Hypothyroidism, unspecified

== ENCOUNTER → 2021-01-08 | Outpatient (REF) | payer BC ==
[2021-01-08 15:01] LABS: BASO % 0.2 % (0.0-1.0); EOS # 0.1 10^3/uL (0.0-0.5); EOS % 2.1 % (0.0-3.0); HEMATOCRIT 35.5 % (36.0-47.0); LYMPH # 1.3 10^3/uL (1.5-5.0); LYMPH % 29.9 % (24.0-44.0); MEAN CORPUSCULAR HEMOGLOBIN 25.8 pg (27.0-33.0); MEAN CORPUSCULAR VOLUME 83.1 fl (80.0-96.0); MONO # 0.5 10^3/uL (0.0-0.8); MONO % 11.3 % (2.0-8.0); NEUTROPHILS # 2.4 10^3/uL (1.5-8.5); NEUTROPHILS % 56.3 % (36.0-66.0); PLATELET COUNT, AUTOMATED 216 10^3/uL (150-450); RED BLOOD COUNT 4.27 10^6/uL (4.00-5.40); WHITE BLOOD COUNT 4.3 10^3/uL (4.0-10.0)
[2021-01-08 16:00] LABS: ALBUMIN 3.2 GM/DL (3.2-5.2); ALT/SGPT 22 U/L (12-78); BILIRUBIN,TOTAL 0.4 MG/DL (0.2-1.0); BLOOD UREA NITROGEN 12 MG/DL (7-18); CALCIUM LEVEL 8.6 MG/DL (8.5-10.1); CARBON DIOXIDE LEVEL 28 MEQ/L (21-32); CHLORIDE LEVEL 107 MEQ/L (98-107); CREATININE FOR GFR 0.74 MG/DL (0.55-1.30); FERRITIN 9 NG/ML (8-252); FREE T4 1.11 NG/DL (0.76-1.46); GLOMERULAR FILTRATION RATE > 60.0 (>60); GLUCOSE, FASTING 85 MG/DL (70-100); IRON (FE) 25 UG/DL (50-170); PERCENT SATURATION 5.7 % (13.2-45.0); POTASSIUM SERUM 3.7 MEQ/L (3.5-5.1); SODIUM LEVEL 140 MEQ/L (136-145); TOTAL 25(OH) VITAMIN D 24.2 NG/ML (30.0-100.0); TOTAL IRON BINDING CAPACITY 438 UG/DL (250-450); TOTAL PROTEIN 6.3 GM/DL (6.4-8.2); VITAMIN B12 LEVEL 273 PG/ML (247-911)
== END ==
LOC: M SFHCADAM 13:33
PROVIDERS: ATTEND Physician Assistant Medical
DX: D50.8 Other iron deficiency anemias (principal); E53.8 Deficiency of other specified B group vitamins; E03.9 Hypothyroidism, unspecified; M79.7 Fibromyalgia; E55.9 Vitamin D deficiency, unspecified

== ENCOUNTER → 2021-01-09 | Outpatient (REF) | payer BC | LOC: M SFHCADAM 08:22 | PROVIDERS: ATTEND Physician Assistant Medical | DX: E53.8 Deficiency of other specified B group vitamins (principal) ==

== ENCOUNTER → 2021-01-27 | Outpatient (REF) | payer BC | LOC: M SFHCADAM 15:38 | PROVIDERS: ATTEND Physician Assistant Medical | DX: R51.9 Headache, unspecified (principal) ==

== ENCOUNTER 2021-02-11 21:19 | Emergency (ER) | payer BC ==
[~2021-02-11] VITALS: Ht 165.1 cm; Wt 52.3 kg
[2021-02-11 23:10] LABS: HEMATOCRIT 30.4 % (36.0-47.0); HEMOGLOBIN 9.5 g/dl (12.0-15.5); MEAN CORPUSCULAR HEMOGLOBIN 24.7 pg (27.0-33.0); MEAN CORPUSCULAR HGB CONC 31.3 g/dl (32.0-36.5); PLATELET COUNT, AUTOMATED 180 10^3/uL (150-450); RED BLOOD COUNT 3.85 10^6/uL (4.00-5.40); WHITE BLOOD COUNT 4.1 10^3/uL (4.0-10.0)
[2021-02-11 23:45] LABS: ACETAMINOPHEN LEVEL < 2.0 UG/ML (10.0-30.0); ALBUMIN 2.9 GM/DL (3.2-5.2); ALT/SGPT 19 U/L (12-78); BILIRUBIN,DIRECT 0.2 MG/DL (0.0-0.2); BILIRUBIN,TOTAL 0.4 MG/DL (0.2-1.0); BLOOD UREA NITROGEN 13 MG/DL (7-18); CALCIUM LEVEL 8.2 MG/DL (8.5-10.1); CARBON DIOXIDE LEVEL 23 MEQ/L (21-32); CHLORIDE LEVEL 108 MEQ/L (98-107); ETHYL ALCOHOL (ETHANOL) 0.226 % (0.000-0.010); GLOMERULAR FILTRATION RATE > 60.0 (>60); GLUCOSE, FASTING 86 MG/DL (70-100); SALICYLATE LEVEL < 1.7 MG/DL (5.0-30.0); SODIUM LEVEL 139 MEQ/L (136-145); THYROID STIMULATING HORMONE 0.401 uIU/ML (0.358-3.740); TOTAL PROTEIN 6.3 GM/DL (6.4-8.2)
[2021-02-12 00:04] LABS: AMPHETAMINES LEVEL URINE NEGATIVE (NEGATIVE); BARBITURATES URINE NEGATIVE (NEGATIVE); BENZODIAZEPINES URINE NEGATIVE (NEGATIVE); CANNABINOIDS URINE NEGATIVE (NEGATIVE); COCAINE METABOLITE URINE NEGATIVE (NEGATIVE); METHADONE URINE NEGATIVE (NEGATIVE); OPIATES URINE NEGATIVE (NEGATIVE); PHENCYCLIDINE URINE NEGATIVE (NEGATIVE)
[2021-02-12] MEDS ORDERED: SUCRALFATE 1 GM TAB PO SCH (07:30)
[2021-02-12] MEDS ORDERED: PANT40TA29 PO (07:55)
[2021-02-12] MEDS ORDERED: BACI1CAP PO (07:55)
[2021-02-12] MEDS ORDERED: LEVO150T7 PO (07:55)
[2021-02-12] MEDS ORDERED: DICY20TA3 PO (07:56)
[2021-02-12] MEDS ORDERED: SUCR1TA PO (07:56)
[2021-02-12] MEDS ORDERED: HOME MED LIST COMPLETE! XX SCH (08:00)
[2021-02-12] MEDS ORDERED: PANTOPRAZOLE 40MG TAB (PROTONIX) PO SCH (09:00)
--- NOTE | 2021-02-12 11:41 | MHIPNPDOC ---
[facility] Progress Note Progress Note DATE OF SERVICE: 02/12/21 Patient presented by PSA, made PSA where he does not meet criteria for involuntary admission, patient refuses voluntary admission. Patient is a 32-year-old female who is . 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 Acute stressors include being unable to see 11-year-old son with cystic fibrosis, child lives with father and she has weekend visitation but father blocked her on phone and Internet. 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 Last night was in an argument with her while intoxicated drinking much more t ledesma her usual 3-4 beers on weekends. States she does not remember the outburst and is interested in going to therapy. No weapons at home reportedly and will have knives removed. Needs an appointment within 5 days with mental health and a safety plan. U tox screen is negative and per PSA is full smiling laughing. Denies classic drug use, does endorse chewing tobacco use. Patient reportedly denies suicidal ideation, intent or plan today and/or recently and states she made a threat in context of intoxication which she does not remember. Vital Signs Vital Signs Date Time Temp Pulse Resp B/P (MAP) Pulse Ox O2 Delivery O2 Flow Rate FiO2 02/12/21 06:40 98.2 75 18 107/63 (78) 98 Room Air Laboratory Data 24H Labs Laboratory Tests 2 02/11/21 22:56: Urine Opiates Screen NEGATIVE, Urine Methadone Screen NEGATIVE, Urine Barbiturates Screen NEGATIVE, Urine Phencyclidine Screen NEGATIVE, Urine Amphetamines Screen NEGATIVE, Urine Benzodiazepines Screen NEGATIVE, Urine Cocaine Metabolite Screen NEGATIVE, Urine Cannabinoids Screen NEGATIVE 02/11/21 23:00: Nucleated Red Blood Cells % (auto) 0.0, Anion Gap 8, Glomerular Filtration Rate > 60.0, Calcium Level 8.2L, Total Bilirubin 0.4, Direct Bilirubin 0.2, Aspartate Amino Transf (AST/SGOT) 18, Alanine Aminotransferase (ALT/SGPT) 19, Alkaline Phosphatase 49, Total Protein 6.3L, Albumin 2.9L, Albumin/Globulin Ratio 0.9L, Thyroid Stimulating Hormone (TSH) 0.401, Salicylates Level < 1.7L, Acetaminophen Level < 2.0L, Ethyl Alcohol Level 0.226H CBC/BMP Laboratory Tests 02/11/21 23:00 Current Medications Current Medications Medications (Trade) Dose Ordered Sig/Juan Route PRN Reason Start Time Stop Time Status Last Admin Dose Admin Dicyclomine HCl (Bentyl) 20 mg AC PO 02/12/21 12:00 Home Med (Home Med List Complete!) ASDIRECTED XX 02/12/21 08:00 02/12/21 07:57 DC Levothyroxine Sodium (Synthroid) 150 mcg DAILY@06 PO 02/13/21 06:00 Pantoprazole Sodium (Protonix) 40 mg DAILY PO 02/12/21 09:00 02/12/21 08:57 Sucralfate (Carafate) 1 gm ACHS PO 02/12/21 07:30 02/12/21 08:57 Valacyclovir HCl (Valtrex) 500 mg QHS PO 02/12/21 21:00 Allergies Coded Allergies: No Known Allergies (Unverified , 10/16/20) NANCY HORTON MD Feb 12, 2021 11:41
[2021-02-12 11:48] VITALS: BP 153/73
[2021-02-12] MEDS ORDERED: DICYCLOMINE 10 MG CAP PO SCH (12:00)
[2021-02-12] MEDS ORDERED: valACYclovir HCL 500 MG TAB PO SCH (21:00)
[2021-02-13] MEDS ORDERED: LEVOTHYROXINE 150MCG TABLET (0.15MG) PO SCH (06:00)
== END 2021-02-12 11:50 | disposition home or self-care (01) ==
LOC: M ED 21:19
DX: F12.229 Cannabis dependence with intoxication, unspecified (principal); D64.9 Anemia, unspecified; Z79.899 Other long term (current) drug therapy; F17.220 Nicotine dependence, chewing tobacco, uncomplicated

== ENCOUNTER → 2021-04-17 | Outpatient (REF) | payer BC ==
[~2021-04-17] MED LIST changes: +DICY20TA3 PO; +LEVO125T4 PO; +LEVO150T7 PO; +PANT40TA29 PO; +SERT50TA29
[2021-04-17 16:18] LABS: BASO % 0.3 % (0.0-1.0); EOS # 0.1 10^3/uL (0.0-0.5); EOS % 1.4 % (0.0-3.0); HEMATOCRIT 34.4 % (36.0-47.0); HEMOGLOBIN 10.6 g/dl (12.0-15.5); LYMPH # 2.1 10^3/uL (1.5-5.0); LYMPH % 35.4 % (24.0-44.0); MEAN CORPUSCULAR HEMOGLOBIN 25.2 pg (27.0-33.0); MEAN CORPUSCULAR HGB CONC 30.8 g/dl (32.0-36.5); MEAN CORPUSCULAR VOLUME 81.9 fl (80.0-96.0); MONO # 0.5 10^3/uL (0.0-0.8); MONO % 9.2 % (2.0-8.0); NEUTROPHILS # 3.1 10^3/uL (1.5-8.5); NEUTROPHILS % 53.4 % (36.0-66.0); PLATELET COUNT, AUTOMATED 250 10^3/uL (150-450); WHITE BLOOD COUNT 5.8 10^3/uL (4.0-10.0)
[2021-04-17 16:48] LABS: FREE T4 0.36 NG/DL (0.76-1.46); PERCENT SATURATION 4.7 % (13.2-45.0); THYROID STIMULATING HORMONE 99.6 uIU/ML (0.358-3.740)
== END ==
LOC: M SFHCADAM 13:09
PROVIDERS: ATTEND Physician Assistant Medical
DX: E53.8 Deficiency of other specified B group vitamins (principal); E03.9 Hypothyroidism, unspecified; D50.0 Iron deficiency anemia secondary to blood loss (chronic)

== ENCOUNTER → 2021-06-02 | Outpatient (CLI) | payer BC ==
[~2021-06-02] MED LIST changes: -LEVO125T4 PO; -SERT50TA29
== END ==
LOC: M ADAMS 11:58
PROVIDERS: ATTEND Physician Assistant Medical
DX: R05.9 Cough, unspecified (principal); E03.9 Hypothyroidism, unspecified

== ENCOUNTER 2021-06-09 08:51 | Emergency (ER) | payer BC ==
[~2021-06-09] VITALS: Ht 154.9 cm; Wt 56.0 kg
[2021-06-09] MEDS ORDERED: SERT50TA29 (08:57)
[2021-06-09] MEDS ORDERED: MORPHINE 4 MG/ML 1ML VIAL/SYRINGE (J2270) IV ONE (09:15)
[2021-06-09] MEDS ORDERED: ONDANSETRON 4MG/2ML VIAL IV ONE (09:15)
[2021-06-09] MEDS ORDERED: NS 1,000 ML IV ONE (09:15)
[2021-06-09 09:49] LABS: BASO % 0.3 % (0.0-1.0); EOS % 0.7 % (0.0-3.0); HEMATOCRIT 37.9 % (36.0-47.0); LYMPH # 0.9 10^3/uL (1.5-5.0); LYMPH % 31.5 % (24.0-44.0); MEAN CORPUSCULAR HEMOGLOBIN 25.3 pg (27.0-33.0); MEAN CORPUSCULAR HGB CONC 31.7 g/dl (32.0-36.5); MEAN CORPUSCULAR VOLUME 79.8 fl (80.0-96.0); MONO # 0.3 10^3/uL (0.0-0.8); MONO % 8.5 % (2.0-8.0); NEUTROPHILS # 1.7 10^3/uL (1.5-8.5); NEUTROPHILS % 58.7 % (36.0-66.0); PLATELET COUNT, AUTOMATED 238 10^3/uL (150-450); RED BLOOD COUNT 4.75 10^6/uL (4.00-5.40)
[2021-06-09] MEDS: GASTROGRAFIN SOLUTION 30ML PO SCH ×2 (09:53→10:24)
[2021-06-09 10:08] LABS: ALBUMIN 3.4 GM/DL (3.2-5.2); BILIRUBIN,DIRECT 0.2 MG/DL (0.0-0.2); BILIRUBIN,TOTAL 0.5 MG/DL (0.2-1.0); TOTAL PROTEIN 6.9 GM/DL (6.4-8.2)
[2021-06-09] MEDS ORDERED: PIPERACILLIN/TAZOBACTAM SOD 3.375 GM in D5W MINI-BAG PLUS 50 ML IV ONE (11:00)
[2021-06-09] MEDS ORDERED: ISOVUE-370 76% 100ML VIAL As Ordered ONE (11:28)
[2021-06-09] MEDS ORDERED: PANTOPRAZOLE 40MG VIAL (C9113 PER 1) IV ONE (12:05)
[2021-06-09] MEDS ORDERED: GI COCKTAIL 50ML BTL(HYOSCYAMINE/MAALOX/LIDOCAINE VISCOUS)(1:3:1) PO ONE (12:05)
[2021-06-09] MEDS ORDERED: PROT1TAB2 PO (14:27)
[2021-06-09 14:43] VITALS: BP 130/76
== END 2021-06-09 14:45 | disposition home or self-care (01) ==
LOC: M ED 08:51
DX: R10.9 Unspecified abdominal pain (principal); R11.10 Vomiting, unspecified; R19.7 Diarrhea, unspecified; I95.9 Hypotension, unspecified; E28.2 Polycystic ovarian syndrome; E03.9 Hypothyroidism, unspecified; E53.8 Deficiency of other specified B group vitamins; D50.9 Iron deficiency anemia, unspecified; M79.7 Fibromyalgia; Z87.19 Personal history of other diseases of the digestive system; Z85.850 Personal history of malignant neoplasm of thyroid; Z79.899 Other long term (current) drug therapy; Z79.890 Hormone replacement therapy
CPT/HCPCS: 74177; 80047; 80076; 83605; 83690; 85025; 86850; 86900; 86901; 87040; 87505; 96361; 96365; 96375; 99284; C9113; J2270; J2405; J2543; Q9963; Q9967

== ENCOUNTER → 2021-06-12 | Outpatient (REF) | payer BC ==
[~2021-06-12] MED LIST changes: +SERT50TA29
[2021-06-12 13:27] LABS: ALBUMIN 3.1 GM/DL (3.2-5.2); ALT/SGPT 28 U/L (12-78); BILIRUBIN,TOTAL 0.3 MG/DL (0.2-1.0); BLOOD UREA NITROGEN 8 MG/DL (7-18); CALCIUM LEVEL 8.3 MG/DL (8.5-10.1); CARBON DIOXIDE LEVEL 25 MEQ/L (21-32); CHLORIDE LEVEL 111 MEQ/L (98-107); CREATININE FOR GFR 0.76 MG/DL (0.55-1.30); GLOMERULAR FILTRATION RATE > 60.0 (>60); GLUCOSE, FASTING 91 MG/DL (70-100); POTASSIUM SERUM 4.1 MEQ/L (3.5-5.1); SODIUM LEVEL 142 MEQ/L (136-145); TOTAL PROTEIN 6.1 GM/DL (6.4-8.2)
== END ==
LOC: M SFHCADAM 10:21
PROVIDERS: ATTEND Physician Assistant
DX: R10.13 Epigastric pain (principal); D50.0 Iron deficiency anemia secondary to blood loss (chronic); K28.9 Gastrojejunal ulcer, unspecified as acute or chronic, without hemorrhage or perforation

== ENCOUNTER → 2021-07-29 | Outpatient (REF) | payer BC ==
[~2021-07-29] MED LIST changes: +LEVO125T4 PO
== END ==
LOC: M SFHCADAM 08:38
PROVIDERS: ATTEND Physician Assistant Medical
DX: J06.9 Acute upper respiratory infection, unspecified (principal); E03.9 Hypothyroidism, unspecified; R19.5 Other fecal abnormalities

== ENCOUNTER → 2021-07-29 | Outpatient (REF) | payer BC | LOC: M LABDRWAD 12:45 | PROVIDERS: ATTEND Internal Medicine Gastroenterology | DX: K58.0 Irritable bowel syndrome with diarrhea (principal) ==

== ENCOUNTER → 2021-08-07 | Outpatient (CLI) | payer BC | LOC: M LABSMTC 11:31 | PROVIDERS: ATTEND Anesthesiology | DX: Z01.812 Encounter for preprocedural laboratory examination (principal); Z20.822 Contact with and (suspected) exposure to COVID-19 ==

== ENCOUNTER 2021-08-10 12:03 | Day surgery (SDC) | payer BC ==
[~2021-08-10] VITALS: Ht 154.9 cm; Wt 52.6 kg
[~2021-08-10 12:03] MED LIST changes: +NS 1,000 ML IV ONE
[2021-08-10] MEDS ORDERED: fentaNYL 100 MCG/2 ML INJECTION As Ordered ONE (13:48)
[2021-08-10] MEDS ORDERED: LIDOCAINE 2% 100MG/5ML SDV (FOR ANES.) As Ordered ONE (13:49)
[2021-08-10] MEDS ORDERED: propofoL 200 MG/20 ML VIAL As Ordered ONE (13:49)
[2021-08-10] MEDS ORDERED: PHENYLephrine 500MCG 5ML (100MCG/ML) SYRINGE As Ordered ONE (14:15)
[2021-08-10] MEDS ORDERED: ePHEDrine SULFATE 25 MG/5 ML(5MG/ML) SYRINGE As Ordered ONE (14:15)
[2021-08-10 15:05] VITALS: BP 112/73
== END 2021-08-10 15:07 | disposition home or self-care (01) ==
LOC: M OPP 12:03
PROVIDERS: ATTEND Internal Medicine Gastroenterology
DX: K57.30 Diverticulosis of large intestine without perforation or abscess without bleeding (principal); Z80.0 Family history of malignant neoplasm of digestive organs; R10.84 Generalized abdominal pain; R19.4 Change in bowel habit; D50.9 Iron deficiency anemia, unspecified; K28.9 Gastrojejunal ulcer, unspecified as acute or chronic, without hemorrhage or perforation; Z98.0 Intestinal bypass and anastomosis status; R19.7 Diarrhea, unspecified; Z79.899 Other long term (current) drug therapy; F17.210 Nicotine dependence, cigarettes, uncomplicated
CPT/HCPCS: 43239; 45380; 88305; J2370; J3010